=== PATIENT | male | born 1960 | race Two or more races ===

== ENCOUNTER 2022-11-28 14:56 | Emergency (ER) | payer OTHER ==
[2022-11-28 15:28] LABS: BASOPHILS % (AUTO) 0.6 % (0.0-2.0); EOSINOPHILS % (AUTO) 0 % (1.0-6.0); HEMATOCRIT 35.8 % (41-53); HEMOGLOBIN 11.3 g/dL (13.5-17.5); LYMPHOCYTES # (AUTO) 1.9 K/uL (1.0-4.8); LYMPHOCYTES % (AUTO) 20.8 % (22.0-44.0); MEAN CORPUSCULAR HEMOGLOBIN 30.9 pg (26.0-34.0); MEAN CORPUSCULAR HGB CONC 31.6 G/dL (31.0-37.0); MEAN CORPUSCULAR VOLUME 98 fL (80-100); MONOCYTES # (AUTO) 0.2 K/uL (0.1-1.0); MONOCYTES % (AUTO) 2.5 % (2.0-9.0); NEUTROPHILS % (AUTO) 76.1 % (40.0-70.0); PLATELET COUNT (AUTO) 218 K/uL (150-450); RED BLOOD CELL COUNT(AUTO) 3.66 MIL/uL (4.50-5.90); RED CELL DISTRIBUTION WIDTH 14.2 % (11.5-14.5); WHITE BLOOD COUNT (AUTO) 9.2 K/uL (4.5-11.0)
[2022-11-28 15:52] LABS: D-DIMER 10.24 mg/L FEU (0.00-0.50); INR 1.1 (0.9-1.1); PROTHROMBIN TIME 11.2 SEC (9.4-11.6)
[2022-11-28 15:58] LABS: TROPONIN I-HIGH SENSITIVITY 93 ng/L (<76)
[2022-11-28 16:58] LABS: BILIRUBIN,TOTAL 0.2 mg/dL (0.1-1.0); CREATININE 2.61 mg/dL (0.60-1.30); POTASSIUM 5.1 mmol/L (3.5-5.1)
[2022-11-28 16:59] LABS: ALBUMIN 2.7 g/dL (3.4-5.0)
[2022-11-29 08:07] LABS: HEPATITIS C AB (EIA) Non Reactive (Non Reactive)
== END 2022-11-28 18:45 ==
LOC: EDBD 14:56 → EMS 14:56
DX: R07.9 Chest pain, unspecified (principal); I46.9 Cardiac arrest, cause unspecified
CPT/HCPCS: 80053; 82550; 83880; 84484; 85025; 85379; 85610; 85730; 86803; 87340; 99285